=== PATIENT | female | born 1955 | race Caucasian/White ===

== ENCOUNTER 2024-03-23 21:07 | Emergency (ER) | payer MEDICARE, SELFPAY ==
[2024-03-23 21:13] VITALS: BP 137/82; PULSE 64; RESP 17; TEMP 36.6; O2SAT 99
[2024-03-23 21:46] VITALS: BP 149/73; PULSE 64; RESP 18; TEMP 36.7; O2SAT 100
--- NOTE | 2024-03-24 01:25 | ED_ITS ---
HPI - General Adult General Chief complaint: Eye Problems Stated complaint: vision changes Time Seen by Provider: 03/24/24 00:10 History of Present Illness HPI narrative: Patient is a 68-year-old female who presents emergency department with chief complaint of right eye flashes and floaters. The patient reports symptoms started around 4:30 p.m. and gradually improved. The patient reports no trauma reports that her blood pressure was a little elevated here in the emergency department patient states that she has no pain in the eye reports no visual changes Related Data Allergies Allergy/AdvReac Type Severity Reaction Status Date / Time Sulfa (Sulfonamide Allergy Rash Verified 03/23/24 21:09 Antibiotics) Review of Systems Review of Systems: A 10 system review of systems was completed on the patient and is negative except for what is stated in the HPI. Nursing and ancillary documentation was reviewed. Exam Narrative: GENERAL: Well-appearing, well-nourished, and in no acute distress. HEAD: Normocephalic, atraumatic. EYES: PERRLA and EOMI. Intra-ocular pressure right eye 19 visual acuity was documented by nursing staff no fluorescein uptake ENT: Nares clear, no rhinorrhea or epistaxis. Mucous membranes moist. NECK: Supple. CHEST: Clear to auscultation. No respiratory distress. HEART: Regular rate and rhythm. No murmur heard. Normal peripheral pulses. ABDOMEN: Soft, nontender, nondistended, normal active bowel sounds. EXTREMITIES: Normal range of motion. No edema. SKIN: Warm, dry, no rash. NEURO: No focal deficits. Alert and oriented x3. PSYCH: Normal mood and affect. Course Vital Signs Vital signs: Vital Signs Temperature 36.6 C 03/23/24 21:13 Pulse Rate 64 03/23/24 21:13 Respiratory Rate 17 03/23/24 21:13 Blood Pressure 137/82 03/23/24 21:13 Pulse Oximetry 99 03/23/24 21:13 Temperature 36.7 C 03/23/24 21:46 Pulse Rate 64 03/23/24 21:46 Respiratory Rate 18 03/23/24 21:46 Blood Pressure 149/73 H 03/23/24 21:46 Pulse Oximetry 100 03/23/24 21:46 Oxygen Delivery Room Air 03/23/24 21:46 Medical Decision Making [facility] Narrative Medical decision making narrative: Differential diagnosis includes acute angle closure glaucoma, corneal abrasion, retinal detachment, vitreous detachment Bedside ultrasound was performed by me that showed no obvious retinal detachment Case was discussed with Dr. Marshall of the [facility] the patient will be seen in the office tomorrow at 11:00 a.m. at the [facility] floor Vital Signs Vital Signs: Vital Signs Temperature 36.6 C 03/23/24 21:13 Pulse Rate 64 03/23/24 21:13 Respiratory Rate 17 03/23/24 21:13 Blood Pressure 137/82 03/23/24 21:13 Pulse Oximetry 99 03/23/24 21:13 Temperature 36.7 C 03/23/24 21:46 Pulse Rate 64 03/23/24 21:46 Respiratory Rate 18 03/23/24 21:46 Blood Pressure 149/73 H 03/23/24 21:46 Pulse Oximetry 100 03/23/24 21:46 Oxygen Delivery Room Air 03/23/24 21:46 Discharge Plan Discharge Clinical Impression: Vitreous floaters of right eye Patient Disposition: Home, Self-Care Condition: Stable Instructions: Antibiotic Form, Blurred Vision (ED), Eye (Visual) Floaters (ED) Additional Instructions: Please follow-up with the ophthalmology clinic at the [facility] floor [address] [place] [address] Follow-up/Referrals: PHYSICIAN,VP TRAINING [Primary Care Provider] - Time of Disposition: 01:30
[2024-03-24 01:35] VITALS: BP 134/76; PULSE 85; RESP 18; O2SAT 100
== END 2024-03-24 01:36 | disposition home or self-care (01) ==
PROVIDERS: Emergency Provider Emergency Medicine
DX: H43.391 Other vitreous opacities, right eye (principal)
CPT/HCPCS: 99283